=== PATIENT | male | born 1950 | race Caucasian/White ===

== ENCOUNTER 2018-09-27 11:00 | Inpatient (IN) | payer MEDICARE, OTHER ==
--- NOTE | 2018-10-02 00:10 | HP ---
HISTORY OF PRESENT ILLNESS: Mr. Burns is a 68-year-old man here today for evaluation of few months worth of left upper extremity, pain that radiates in the anterior chest wall as well. This fits well with a C7 radiculopathy. He has not yet treated this with any specific form of treatment. He has a CT of the cervical spine from [facility] that reveals [id number] left-sided foraminal stenosis at C6-7 that fits very well with his symptoms. Of note, he also has a prior C5-[address] Leblanc in 2001, which he did very well, but he has to move forward with treating this next level as well. In addition, he would need to discuss replacing a spinal stimulator battery to one that is MRI compatible. We will discuss with Dr. Soto. PHYSICAL EXAMINATION: Alert, oriented x3. Gait is normal. No ataxia. Upper extremity motor exam is normal. He has a positive Spurling maneuver. PAST MEDICAL HISTORY: PTSD, sleep apnea, degenerative disk disease, restless legs syndrome, sleep disorder, type 2 diabetes, hypertension, tinnitus, coronary artery disease. PAST SURGICAL HISTORY: Trigger finger, cervical spinal fusion, cholecystectomy, carpal tunnel, cubital tunnel, L3-4 decompression, L3-S1 decompression. CURRENT MEDICATIONS: 1. Plavix. 2. Cymbalta. 3. Lipitor. 4. Toprol. 5. Losartan. 6. Norvasc. 7. Trospium. 8. Lyrica. 9. Requip. 10. Metformin. 11. Flomax. 12. Naproxen. ALLERGIES: DEMEROL. ASSESSMENT: Stimulator failure and cervical radiculopathy. PLAN: Dr. Soto met with the patient, reviewed imaging, advocated for C6-7 ACDF as well as battery revision for spinal stimulator. He explained to the patient the risks, benefits, and alternatives to the procedure. The patient expressed understanding and elected to move forward with the surgery as discussed. I do believe the patient is mentally competent capable to making medical decisions for himself and we will move forward with surgery as planned. Job ID: [id number]
[2018-10-02] MEDS ORDERED: Midazolam HCl 2 mg/2 ml Vial ONE ×2 (07:18→09:41)
[2018-10-02] MEDS ORDERED: Ketamine 50 MG/ML (10ML VIAL) ONE (07:24)
[2018-10-02] MEDS ORDERED: Dexmedetomidine 200 MCG/2 ML VIAL ONE (07:24)
[2018-10-02] MEDS ORDERED: Thrombin 5000 UNITS/5 ML VIAL ONE (07:32)
[2018-10-02] MEDS ORDERED: Fentanyl 100 MCG/2 ML VIAL ONE ×4 (07:36→13:47)
[2018-10-02] MEDS ORDERED: Lidocaine 1% w/Epinephrine 1:100K 20 ML VIAL ONE (07:38)
[2018-10-02] MEDS ORDERED: Phenylephrine HCL 10 MG/ML VIAL ONE (09:18)
[2018-10-02] MEDS ORDERED: PHENYLEPHRINE-NS 100 MCG/ML 10 ML SYRINGE ONE ×2 (09:18→16:27)
--- NOTE | 2018-10-02 10:52 | OP ---
DATE OF PROCEDURE: 10/02/2018 FEATHER EDGER: Jens Fang PA-C. INDICATION: Malfunctioning dorsal column stimulator and cervical radiculopathy. PROCEDURES PERFORMED: 1. Revision of dorsal column stimulator generator. 2. Anterior cervical diskectomy and fusion at C6-C7 with exploration of fusion. DESCRIPTION OF PROCEDURE: The patient was brought into the operating room and placed under general anesthesia. He was flipped from a supine to prone position on the operating room table. A linear incision above the previously placed spinal cord stimulator generator was identified and prepped and draped. After an appropriate pause, the incision was created. The generator was removed and replaced with a new generator and tucked back into the same pocket, where the wound was irrigated. Hemostasis was maintained. The wound was closed in anatomic layers and a pressure dressing was applied. Under the same anesthesia, the patient was then flipped from a prone position to a supine position. A linear incision was planned over the neck on the right just above the collar bone. This was prepped and draped in usual sterile fashion. Following an appropriate pause, the incision was created. The underlying platysma muscle was identified and incised. A blunt tissue plane anterior to the sternocleidomastoid muscle was used to gain access to the prevertebral space. We dissected through a substantial degree of scar. The previous plate was identified as was ectopic bone emanating around the plate and inferiorly to it. This portion of the fusion was explored and partially removed in order to identify and access the C6-C7 disk space. All disk material at C6-C7 was then removed. The anterior and posterior osteophytes were removed. After decompression of the C6-C7 segment, 6-mm lordotic PEEK cage packed with allograft and autograft material was placed within the interbody space. The wound was then irrigated. Hemostasis was maintained throughout. The wound was then closed in anatomic layers and a pressure dressing was applied. There were no known procedural complications. Job ID: [id number]
[2018-10-02] MEDS ORDERED: Tamsulosin HCl 0.4 MG CAP ONE (12:52)
[2018-10-02] MEDS ORDERED: tiZANidine HCl 4 MG TAB ONE (12:55)
[2018-10-02] MEDS ORDERED: Acetaminophen/Codeine 30-300mg Tablet ONE ×2 (14:36)
[2018-10-02] MEDS ORDERED: Acetaminophen 325 MG TAB PO PRN (15:47)
[2018-10-02] MEDS ORDERED: Acetaminophen/Codeine 30-300mg Tablet PO PRN (15:47)
[2018-10-02] MEDS ORDERED: tiZANidine HCl 4 MG TAB PO PRN (15:47)
[2018-10-02] MEDS ORDERED: diphenhydrAMINE 25 MG CAP PO PRN (15:47)
[2018-10-02] MEDS ORDERED: Mag-Al 1200 mg/1200 mg/30 ML UDCUP PO PRN (15:47)
[2018-10-02] MEDS ORDERED: Acetaminophen 650 MG Suppository PR PRN (15:47)
[2018-10-02] MEDS ORDERED: diphenhydrAMINE 50 MG/ML VIAL IVP PRN (15:47)
[2018-10-02] MEDS ORDERED: Ondansetron PF 4 MG/2 ML Vial IVP PRN (15:47)
[2018-10-02] MEDS ORDERED: REFRESH PLUS (Carboxymethylcellulose 0.5%) Opth Drops EA EYE PRN (15:51)
[2018-10-02] MEDS: Acetaminophen/Codeine 30-300mg Tablet PO PRN (16:15)
[2018-10-02] MEDS: Sodium Chloride 0.9% 1,000 ML IV SCH ×2 (16:23→20:49)
[2018-10-02] MEDS ORDERED: Glycopyrrolate 0.2 MG/ML 5 ML SYRINGE ONE (16:27)
[2018-10-02] MEDS ORDERED: Lidocaine 1% PF 5 ML VIAL ONE (16:27)
[2018-10-02] MEDS ORDERED: PROPOFOL 200 MG/20 ML VIAL ONE (16:27)
[2018-10-02] MEDS ORDERED: ePHEDrine 50 MG/ML VIAL ONE (16:27)
[2018-10-02] MEDS ORDERED: Rocuronium Bromide 10 MG/ML (10ML VIAL) ONE (16:27)
[2018-10-02 20:00] VITALS: BMI 27.7
[2018-10-02] MEDS: Pregabalin 50 MG CAP PO SCH (20:50)
[2018-10-02] MEDS: Losartan 25 MG TAB PO SCH (20:52)
[2018-10-02] MEDS: metFORMIN 500 MG TAB PO SCH (20:52)
[2018-10-02] MEDS: DULoxetine 60 MG CAP PO SCH (20:53)
[2018-10-02] MEDS: Trospium 20 MG TAB PO SCH (20:55)
[2018-10-02] MEDS ORDERED: Atorvastatin Calcium 40 MG TAB PO SCH (21:00)
[2018-10-02] MEDS: CEFAZOLIN 2 GM in Premix Bag 1 BAG IVPB SCH (21:00)
[2018-10-02] MEDS ORDERED: Melatonin 3 MG TAB PO SCH (21:00)
[2018-10-02] MEDS ORDERED: rOPINIRole HCl 2 MG TAB PO SCH (21:00)
[2018-10-03] MEDS: Acetaminophen/Codeine 30-300mg Tablet PO PRN ×4 (05:06→14:53)
[2018-10-03] MEDS: CEFAZOLIN 2 GM in Premix Bag 1 BAG IVPB SCH (05:08)
[2018-10-03] MEDS ORDERED: Tamsulosin HCl 0.4 MG CAP PO SCH ×2 (06:00→09:00)
[2018-10-03] MEDS: metFORMIN 500 MG TAB PO SCH (08:43)
[2018-10-03] MEDS: Trospium 20 MG TAB PO SCH (08:44)
[2018-10-03] MEDS: DULoxetine 60 MG CAP PO SCH (08:44)
[2018-10-03] MEDS: Pregabalin 50 MG CAP PO SCH ×2 (08:45→14:52)
[2018-10-03] MEDS: Losartan 25 MG TAB PO SCH (08:48)
--- NOTE | 2018-10-03 08:55 | DIS ---
DATE OF ADMISSION: 10/02/2018 DATE OF DISCHARGE: 10/03/2018 Mr. Burns was admitted to [facility] on October 02, 2018, by Dr. Alok Soto ADMISSION DIAGNOSES: Status post dorsal column stimulator revision and anterior cervical diskectomy and fusion. DISCHARGE DIAGNOSES: Status post dorsal column stimulator revision and anterior cervical diskectomy and fusion. HOSPITAL COURSE: Mr. Burns's hospital course was uncomplicated. His pain was well controlled with just oral medications. He ambulated well in the hallways and overall, was very comfortable. No consultations were ordered, and he was ultimately discharged home in good condition with followup plan to 2 weeks. Job ID: [id number]
[2018-10-03] MEDS ORDERED: Amlodipine 5 MG TAB PO SCH (09:00)
[2018-10-03] MEDS ORDERED: rOPINIRole HCl 1 MG TAB PO SCH (09:00)
[2018-10-03] MEDS ORDERED: Fish Oil 1,000 MG CAP PO SCH (09:00)
[2018-10-03] MEDS ORDERED: Cyanocobalamin (Vitamin B-12) 1,000 MCG TAB PO SCH (09:00)
[2018-10-03] MEDS ORDERED: Polyvinyl Alcohol 1.4%/Povidone 0.6% Opth Drops EA EYE SCH ×2 (09:00)
[2018-10-03 11:58] VITALS: BP 121/74; TEMP 97.8
== END 2018-10-03 18:22 | disposition home or self-care (01) | DRG 29 ==
LOC: SURG A 10-02 05:33 → SJJU 10-02 13:40
PROVIDERS: ADMIT Neurological Surgery; ATTEND Neurological Surgery
PROC: 0JWT0MZ Revision of Stimulator Generator in Trunk Subcutaneous Tissue and Fascia, Open Approach (ICD-10-PCS; principal; 2018-10-02)
PROC: 0RG10A0 Fusion of Cervical Vertebral Joint with Interbody Fusion Device, Anterior Approach, Anterior Column, Open Approach (ICD-10-PCS; 2018-10-02)
PROC: 0RB30ZZ Excision of Cervical Vertebral Disc, Open Approach (ICD-10-PCS; 2018-10-02)
DX: M54.12 Radiculopathy, cervical region (principal); T85.113A Breakdown (mechanical) of implanted electronic neurostimulator, generator, initial encounter; F43.10 Post-traumatic stress disorder, unspecified; G47.00 Insomnia, unspecified; G25.81 Restless legs syndrome; E11.9 Type 2 diabetes mellitus without complications; I10 Essential (primary) hypertension; I25.10 Atherosclerotic heart disease of native coronary artery without angina pectoris; Z98.1 Arthrodesis status; Z90.49 Acquired absence of other specified parts of digestive tract; Z79.02 Long term (current) use of antithrombotics/antiplatelets; Z79.899 Other long term (current) drug therapy; Z88.8 Allergy status to other drugs, medicaments and biological substances
CPT/HCPCS: 76000; J0690; J2001; J2250; J2370; J2704; J3010; J3490

== ENCOUNTER 2018-09-27 11:03 | Outpatient (CLI) | payer MEDICARE, OTHER ==
[2018-09-27 13:02] LABS: Hemoglobin 15.2 g/dL (14.0-18.0); Mean Corpuscular Hemoglobin 30.9 pg (27.0-31.0); Mean Corpuscular Volume 88.3 fL (78.0-98.0); Mean Platelet Volume 6.8 fL (7.4-10.4); Platelet Count 323 thou/uL (130-400); RBC Distribution Width 12.1 % (11.5-14.5); Red Blood Cell (RBC) Count 4.91 mill/uL (4.70-6.10); White Blood Cell (WBC) Count 7.1 thou/uL (4.8-10.8)
[2018-09-27 13:21] LABS: Anion Gap 16 mmol/L (10-20); BUN (Urea Nitrogen) 28 mg/dL (8.4-25.7); Calc. Creatinine Clearance 0 mL/min (70-130); Calcium 10.7 mg/dL (7.8-10.44); Carbon Dioxide 21 mmol/L (23-31); Chloride 105 mmol/L (98-107); Estimated GFR-MDRD 60; Glucose 162 mg/dL (80-115); Potassium 4.5 mmol/L (3.5-5.1); Sodium 137 mmol/L (136-145)
== END 2018-09-27 11:04 | disposition home or self-care (01) ==
LOC: LABBT 11:03
PROVIDERS: ATTEND Neurological Surgery
DX: Z01.818 Encounter for other preprocedural examination (principal); M54.12 Radiculopathy, cervical region
CPT/HCPCS: 80048; 85027; 93005; 93010

== ENCOUNTER 2020-05-19 08:31 | Outpatient (CLI) | payer MEDICARE, OTHER | END 2020-05-19 08:32 | disposition home or self-care (01) | LOC: NM 08:31 | PROVIDERS: ATTEND Internal Medicine Interventional Cardiology | DX: G20 Parkinson's disease (principal) | CPT/HCPCS: 78803; A9584 ==

== ENCOUNTER 2023-11-07 08:30 | Outpatient (CLI) | payer MEDICARE, OTHER | END 2023-11-07 08:31 | disposition home or self-care (01) | LOC: NM 08:30 | PROVIDERS: ATTEND Psychiatry & Neurology Neurology | DX: G21.19 Other drug induced secondary parkinsonism (principal) | CPT/HCPCS: 78803; A9584 ×2 ==